=== PATIENT | female | born 1995 | race Caucasian/White ===

== ENCOUNTER 2016-12-03 16:11 | Outpatient (CLI) ==
[2016-12-03 16:51] LABS: BASOPHILS % (AUTO) 0.4 % (0.0-3.0); EOSINOPHILS % (AUTO) 0.4 % (0.0-7.0); HEMATOCRIT 40.6 % (37.0-47.0); HEMOGLOBIN 13.8 g/dl (12.0-16.0); IMMATURE GRANULOCYTE % (AUTO) 0.4 % (0.0-5.0); LYMPHOCYTES # (AUTO) 1.7 K/uL (0.60-3.4); LYMPHOCYTES % (AUTO) 30.7 (10.0-50.0); MEAN CORPUSCULAR HEMOGLOBIN 29.9 pg (27.0-31.0); MEAN CORPUSCULAR VOLUME 88.1 fl (81.0-99.0); MONOCYTES # (AUTO) 0.4 K/uL (0.4-2.0); MONOCYTES % (AUTO) 6.6 (0-10); NEUTROPHILS # (AUTO) 3.4 K/ul (2.0-6.9); NEUTROPHILS % (AUTO) 61.5; PLATELET COUNT 220 10^3/uL (140-440); RED BLOOD COUNT 4.61 10^6/ul (4.20-5.40); WHITE BLOOD COUNT 5.48 K/ul (4.6-10.2)
[2016-12-03 17:30] LABS: ALBUMIN 4.8 g/dL (3.4-5.0); ALBUMIN/GLOBULIN RATIO 1.41; ANION GAP 14.2; BILIRUBIN,TOTAL 1.22 mg/dL (0.00-1.20); BUN/CREATININE RATIO 11.95; CALCIUM 10.2 mg/dL (8.2-10.2); CREATININE 0.92 mg/dL (0.60-1.30); POTASSIUM 4.2 mmol/L (3.5-5.10); TOTAL PROTEIN 8.2 g/dL (6.4-8.2)
== END 2016-12-03 16:12 | disposition home or self-care (01) ==
LOC: LAB 16:11
PROVIDERS: ATTEND Nurse Practitioner Family
DX: F41.9 Anxiety disorder, unspecified (principal); R10.11 Right upper quadrant pain; R19.7 Diarrhea, unspecified
CPT/HCPCS: 36415; 80053; 82150; 83690; 85025